=== PATIENT | female | born 1995 | race Caucasian/White ===

== ENCOUNTER 2022-11-04 11:58 | Outpatient (CLI) | payer OTHER ==
[~2022-11-04 11:58] MED LIST: Magnevist 469MG/ML 20 ML VIAL ONE
[2022-11-04] MEDS ORDERED: EPINEPHrine 1 MG/ML AMP ONE (15:00)
[2022-11-04] MEDS ORDERED: Gadobenate Dimeglumine 529 MG/1 ML (5 ML SDV) ONE (15:00)
[2022-11-04] MEDS ORDERED: Iopamidol 300 61% 100 ML VIAL FS ONE (15:00)
[2022-11-04] MEDS ORDERED: Lidocaine 1% PF 5 ML VIAL ONE (15:00)
== END 2022-11-04 11:59 | disposition home or self-care (01) ==
LOC: CSHRAD 11:58
PROVIDERS: ATTEND Orthopaedic Surgery
DX: S73.192A Other sprain of left hip, initial encounter (principal); M25.80 Other specified joint disorders, unspecified joint
CPT/HCPCS: 27093; A9577; J0171; J7050; Q9967